=== PATIENT | male | born 1935 | race Caucasian/White ===

== ENCOUNTER → 2017-10-22 | Outpatient (CLI) | payer OTHER | LOC: BHLMT 11:00 | PROVIDERS: ATTEND Nurse Practitioner Family | DX: R55 Syncope and collapse (principal); R42 Dizziness and giddiness; I48.0 Paroxysmal atrial fibrillation; I42.8 Other cardiomyopathies; I10 Essential (primary) hypertension; E78.00 Pure hypercholesterolemia, unspecified; Z95.810 Presence of automatic (implantable) cardiac defibrillator | CPT/HCPCS: 93005-PO ==

== ENCOUNTER 2017-10-23 08:40 | Day surgery (SDC) | payer OTHER ==
[2017-10-23] MEDS ORDERED: ATROPINE SULFATE 1 MG/10 ML SYR IVP ONE (08:42)
[2017-10-23] MEDS ORDERED: NS 1,000 ML IV ONE (08:42)
--- NOTE | 2017-10-23 09:01 | CPEKG ---
Heart Rate: 125 RR Interval: 480 QRSD Interval: 152 QTC Interval: 0 QRS [place]: -67 EKG Severity - ABNORMAL ECG - EKG Impression: AFIB/FLUT AND V-PACED COMPLEXES Electronically Signed By: Diaz Marina 23-Oct-2017 11:24:03
[2017-10-23 09:22] LABS: INR 3.41 (0.83-1.16); PROTIME(PATIENT) 34.2 SEC (12.0-15.0)
[2017-10-23] MEDS ORDERED: PROPOFOL 200 MG/20 ML VIAL ONE (09:53)
--- NOTE | 2017-10-23 09:58 | PDANEPAE ---
ANE History of Present Illness CHRISSIE/CV afib ANE Past Medical History - Cardiovascular History Hx Hypertension: Yes Hx Arrhythmias: Yes Hx Chest Pain: No Hx Coronary Artery / Peripheral Vascular Disease: No Hx Palpitations: Yes - Pulmonary History Hx COPD: No Hx Asthma/Reactive Airway Disease: No Hx Recent Upper Respiratory Infection: No Hx Oxygen in Use at Home: No Hx Sleep Apnea: No ANE Review of Systems Review of Systems: - Exercise capacity METS (RN): 3 METS ANE Patient History - Allergies Allergies/Adverse Reactions: No Allergies [NKDA] Allergy (Verified 10/22/17 12:23) - Home Medications Home medications: home medication list seen and reviewed Home Medications: Carvedilol [Coreg (*)] 25 mg PO BIDMEAL 10/23/17 [Last Taken 10/23/17] Docusate Sodium [Colace 100 MG (*)] 10/23/17 [Last Taken 10/23/17] Furosemide [Lasix 40 MG (*)] 10/23/17 [Last Taken 10/22/17] Lisinopril 20 mg PO 10/23/17 [Last Taken 10/23/17] Jack-3/Dha/Epa/Fish Oil [Fish Oil 1,000 mg Softgel] 10/23/17 [Last Taken 10/23] Warfarin Sodium [Coumadin 2.5MG (*)] 2.5 mg PO DAILY16 10/23/17 [Last Taken 09/06] amLODIPine BESYLATE [Norvasc 2.5 mg (*)] 2.5 mg PO DAILY 10/23/17 [Last Taken ] - NPO status NPO Status: no food or drink >8 hours - Smoking Hx Smoking Status: Former smoker Marijuana use: No - Alcohol Use Alcohol Use: Rarely - Family Anes Hx Family Anes Hx: none ANE Labs/Vital Signs - Labs Result Diagrams: 10/23/17 09:05 - Vital Signs Height: 185.42 cm Weight: 92.986 kg ANE Physical Exam - Airway Neck exam: decreased ROM Mallampati Score: Class 2 Mouth exam: dentures - Pulmonary Pulmonary: no respiratory distress - Cardiovascular Cardiovascular: irregularly irregular, tachycardia ANE Anesthesia Plan Total IV Anesthesia: Yes
--- NOTE | 2017-10-23 10:01 | PDHPUP ---
History & Physical Update H&P update statement: This history and physical update is based on an assessment of the patient which was completed after admission or registration (within 24 hours), but prior to the surgery/procedure. 82 year old with symptomatic Afib. INR is therapeutic today. Medtronic BiV ICD in place. H&P update: H&P reviewed & patient examined, no change in patient's condition since H&P completed
--- NOTE | 2017-10-23 10:40 | CPEKG ---
Heart Rate: 80 RR Interval: 750 QRSD Interval: 134 QT Interval: 468 QTC Interval: 540 P [place]: 0 QRS [place]: -15 T Wave [place]: 206 EKG Severity - ABNORMAL ECG - EKG Impression: ATRIAL-SENSED VENTRICULAR-PACED COMPLEXES Electronically Signed By: Diaz Marina 23-Oct-2017 11:23:44
[2017-10-23] MEDS ORDERED: NALOXONE HCL 0.4 MG/ML INJ IVP PRN (10:41)
--- NOTE | 2017-10-23 10:41 | POSTANESTH ---
Post Anesthetic Evaluation Cardiovascular Status: Normal, Stable Respiratory Status: Normal, Stable Level of Consciousness/Mental Status: Can Participate in Eval Pain Control: Adequate, Prn Tx Ordered Nausea/Vomiting Control: Adequate, Prn Tx Ordered Complications Possibly Related to Anesthesia: None Noted
--- NOTE | 2017-10-23 10:58 | CPR ---
[f rep st] NONINVASIVE CARDIAC PROCEDURE REPORT DATE OF PROCEDURE: 10/23/2017 PROCEDURE PERFORMED: Transesophageal echocardiogram and direct current cardioversion. INDICATION FOR PROCEDURE: Atrial fibrillation, which is symptomatic. INDICATION: The patient is a pleasant 82-year-old gentleman with a known history of nonischemic card iomyopathy, status post dual chamber biventricular ICD implantation and a known history of paroxysmal atrial fibrillation, who presented to [facility] office with Claudy LLOYD and was found to be in symptomatic atrial fibrillation. He was subsequently arranged for CHRISSIE cardioversion today. 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 His most recent INRs have been therapeutic. However, given the significant amount of time in between his most recent INR checks, decision was made to pursue transesophageal ech ocardiogram prior to his cardioversion today. His INR at the time of procedure today was 3.4. DESCRIPTION OF PROCEDURE: After consents were signed for CHRISSIE cardioversion and anesthesia, a bite bl ock was placed. After appropriate sedation was achieved, CHRISSIE probe was passed without incident. Lef t atrial appendage was viewed in multiple projections. There was no evidence of left atrial appendag e or left atrial thrombus. Left ventricular function demonstrated LVEF of approximately 50%. No sig nificant valvular disease. CHRISSIE probe was removed without incident. The patient underwent a single biphasic synchronized shock of 200 joules with christianity of sinus rh ythm. Postoperatively, he did undergo a pace defibrillator interrogation demonstrating a normally functioni ng device. No changes were made to the settings of his ICD. PLAN: 1. The patient will be discharged home on current medications. 2. The patient will remain on his outpatient Coumadin regimen. 3. Followup with [facility] with Claudy LLOYD. /[id number]/MODL
--- NOTE | 2017-10-23 13:59 | ECHO ---
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 Conclusions: Normal size left ventricle. Normal global systolic LV function. The ejection fraction is visually estimated to be 50 %. Normal RV function. No thrombus is noted in the left atrium. No thrombus in left appendage. Measurements: Chambers Valvular Assessment AV/MV Valvular Assessment TV/PV Normal Normal Normal Name Value Range Name Value Range Name Value Range Visual EF: 50 % Additional Measurements: Findings: Left Ventricle: Normal size left ventricle. No LV hypertrophy. Normal global systolic LV function. The ejection fraction is visually estimated to be 50 %. No regional wall motion abnormality. Unable to assess diastolic dysfunction. Right Ventricle: Normal size right ventricle. Normal RV function. Patient: ALYSSIA CESPEDES Study Date: 10/23/2017 Page 1 of 2 08:06 AM Left Atrium: The left atrium is normal in size. Moderate atrial septal aneurysm. No thrombus is noted in the left atrium. Left Atrial Appendage: Good color flow doppler in the left atrial appendage. No thrombus in left appendage. Right Atrium: The right atrium is mildly dilated. Eustachian valve discernible in right atrium. Mitral Valve: The mitral valve is normal in appearance and function. Mild mitral valve regurgitation is present. No mitral stenosis is present. Aortic Valve: The aortic valve is normal in appearance and function. Aortic sclerosis is present. There is no significant aortic valve regurgitation. No aortic valve stenosis is present. Tricuspid Valve: The tricuspid valve is normal in appearance and function. Pulmonic Valve: The pulmonic valve is normal in appearance and function. Aorta: The aorta is normal. Pericardium: No pericardial effusion. No pleural effusion. l1n (No Signature Object) Patient: ALYSSIA CESPEDES Study Date: 10/23/2017 Page 2 of 2 08:06 AM [id number]
== END 2017-10-23 11:41 | disposition home or self-care (01) ==
LOC: FCATH 08:40
PROVIDERS: ATTEND Internal Medicine Cardiovascular Disease
PROC: 5A2204Z Restoration of Cardiac Rhythm, Single (ICD-10-PCS; principal; 2017-10-23)
DX: I48.91 Unspecified atrial fibrillation (principal); Z87.891 Personal history of nicotine dependence
CPT/HCPCS: J0461; J2704

== ENCOUNTER → 2017-11-02 | Outpatient (CLI) | payer OTHER | LOC: BHLMT 11:00 | PROVIDERS: ATTEND Internal Medicine Cardiovascular Disease | DX: I42.8 Other cardiomyopathies (principal); I48.0 Paroxysmal atrial fibrillation; R42 Dizziness and giddiness; Z95.810 Presence of automatic (implantable) cardiac defibrillator | CPT/HCPCS: 93005-PO ==

== ENCOUNTER → 2018-01-25 | Day surgery (SDC) | payer OTHER ==
[~2018-01-25] MED LIST: BACITRACIN IRRIGATION/NS 50,000 UNITS/1,000 ML BTL IRR ONE; DIAZEPAM 5 MG TAB PO ONE; NS 1,000 ML IV ONE; ceFAZolin 2 GM/DEXTROSE 100 ML IV ONE; diphenhydrAMINE 25 MG CAP PO ONE
--- NOTE | 2018-01-25 08:21 | CPEKG ---
Heart Rate: 71 RR Interval: 845 P-R Interval: 180 QRSD Interval: 130 QT Interval: 460 QTC Interval: 500 P [place]: 55 QRS [place]: 260 T Wave [place]: 60 EKG Severity - ABNORMAL ECG - EKG Impression: ATRIAL-SENSED VENTRICULAR-PACED RHYTHM EKG Impression: No significant change since October 23, 2017 Electronically Signed By: Duke Perry 25-Jan-2018 09:23:45
[2018-01-25 08:30] LABS: PLATELET COUNT 190 10^3/uL (150-400)
[2018-01-25 08:42] LABS: INR 1.6 (0.83-1.16); PROTIME(PATIENT) 19.2 SEC (12.0-15.0)
== END | disposition home or self-care (01) ==
LOC: FCATH 07:56
PROVIDERS: ATTEND Internal Medicine Cardiovascular Disease
DX: Z53.8 Procedure and treatment not carried out for other reasons (principal)
CPT/HCPCS: J0690

== ENCOUNTER 2018-02-17 09:31 | Day surgery (SDC) | payer OTHER ==
[2018-02-17] MEDS ORDERED: DIAZEPAM 5 MG TAB PO ONE (09:33)
[2018-02-17] MEDS ORDERED: NS 1,000 ML IV ONE (09:33)
[2018-02-17] MEDS ORDERED: diphenhydrAMINE 25 MG CAP PO ONE (09:33)
[2018-02-17] MEDS ORDERED: BACITRACIN IRRIGATION/NS 50,000 UNITS/1,000 ML BTL IRR ONE (09:33)
[2018-02-17] MEDS ORDERED: ceFAZolin 2 GM/DEXTROSE 100 ML IV ONE (09:33)
--- NOTE | 2018-02-17 09:46 | PDHPUP ---
History & Physical Update H&P update statement: This history and physical update is based on an assessment of the patient which was completed after admission or registration (within 24 hours), but prior to the surgery/procedure. H&P update: H&P reviewed & patient examined, no change in patient's condition since H&P completed
--- NOTE | 2018-02-17 09:47 | PDPROPOC ---
Sedation Plan of Care Sedation Plan of Care: vital signs stable, mental status noted, patient educated of risks, benefits, alternatives, patient can tolerate sedation ASA Classification: ASA 1 Planned drugs: fentanyl, midazolam Mallampati Score: Class 1 Mallampati Reference Image: Patient passed 3-3-2 rule?: Yes
--- NOTE | 2018-02-17 09:51 | PDGENHP ---
History & Physical Chief Complaint: ICD gen at [facility]. History of Present Illness: ICD gen at [facility]. Pertinent Past, Social, Family History: PAF, NIDCM. Relevant Physical Exam: Clean lungs, RRR,no edema Cardiorespiratory Assessment: Stable for ICD gen change.
[2018-02-17] MEDS ORDERED: LIDOCAINE 1% 300 MG/30 ML SDV ONE (10:04)
[2018-02-17] MEDS ORDERED: fentaNYL 100 MCG/2 ML INJ ONE (10:05)
[2018-02-17] MEDS ORDERED: BUPIVACAINE 0.5% 30 ML SDV ONE (10:05)
[2018-02-17] MEDS ORDERED: MIDAZOLAM 2 MG/2 ML VIAL ONE (10:05)
[2018-02-17] MEDS ORDERED: LIDO/EPI 1% **for epidural** 30 ML SDV ONE (10:05)
[2018-02-17 10:17] LABS: PLATELET COUNT 169 10^3/uL (150-400)
[2018-02-17 10:26] LABS: INR 2.49 (0.83-1.16); PROTIME(PATIENT) 26.9 SEC (12.0-15.0)
--- NOTE | 2018-02-17 12:30 | CPIP ---
[f rep st] INVASIVE CARDIAC PROCEDURE DATE OF PROCEDURE: 02/17/2018 INDICATIONS: The patient is a pleasant, 82-year-old male, with a history of nonischemic cardiomyopat hy with a previous biventricular ICD that was initially implanted in September of 2006. Subsequently, he had a generator change done in January of 2012. His current device is at elective replacement indica tors. PROCEDURE: Biventricular ICD generator change. TECHNIQUE: Following informed consent and in the fasting state, the [facility] The right chest was prepped and draped in the usual sterile fashion. Prior to the procedure antibiotics were administered. 2% lidocaine was infiltrated into the skin ov erlying the existing device. Using a #10 blade, a 4 cm incision was made. Using blunt and sharp dis section, the ICD capsule was identified which was opened sharply. The leads were dissected away from the surrounding scar tissue carefully. The device was then delivered from the pocket. The device w as disconnected from the leads. All leads were interrogated/tested independently. The pocket was th en inspected. All bleeders were cauterized. The pocket was infiltrated with D-Stat. The new device was brought to the field and all leads were identified by serial number and [facility] to the dba guidelines. The device and the redundant portion of the leads were then placed back in the pocket. The pocket was closed in 3 layers, initially using 2 layers of interrupte d suture with 2-0 and 3-0 Vicryl, and finally 4-0 Stratafix for the skin. Steri-Strips and a dry jamin ssing were applied. DEVICE INFORMATION: The leads were initially implanted October 05, 2006. The right atrial lead is a M edtronic model 4076, 45 cm in length, serial number [id number]. The right ventricular lead is Medtro tammy 6949, 58 cm lead, serial number [id number]. The coronary sinus lead is a Medtronic 4193, 78 cm l ead, serial number [id number]. The implanted pulse generator is a [employer] model number [id number], se rial number [id number]. In the atrium, capture was 0.5 milliseconds, 0.4 V with a lead impedance of 415 ohms. Sensed P waves 2.7 mV. In the right ventricle, capture was 0.5 milliseconds at 1.1 V with a lead impedance of 576 ohms, sensed R-waves of 12.5 mV. Coronary sinus lead capture was 0.9 V at 0 .5 milliseconds with sensed R-waves of 5.5 mV. COMPLICATIONS: None. DISPOSITION: The patient will be transferred to the [facility] where he will be recovered. I anticipate he will be discharged home later this afternoon. /[id number]/MODL
--- NOTE | 2018-02-17 13:21 | CPEKG ---
Test Reason : OPEN Blood Pressure : / mmHG Vent. Rate : 071 BPM Atrial Rate : 073 BPM P-R Int : 150 ms QRS Dur : 159 ms QT Int : 507 ms P-R-T Axes : 024 -77 044 degrees QTc Int : 552 ms Atrial-sensed ventricular-paced rhythm There is moderate baseline artifact (making visualization of the "p" waves difficult) Confirmed by Tobias Delgado ([id number]) on 02/17/2018 1:21:09 PM Referred By: Confirmed By:Tobias Delgado
== END 2018-02-17 15:00 | disposition home or self-care (01) ==
LOC: FCATH 09:31
PROVIDERS: ATTEND Internal Medicine Cardiovascular Disease
PROC: 0JH608Z Insertion of Defibrillator Generator into Chest Subcutaneous Tissue and Fascia, Open Approach (ICD-10-PCS; principal; 2018-02-17)
DX: Z45.02 Encounter for adjustment and management of automatic implantable cardiac defibrillator (principal); I42.9 Cardiomyopathy, unspecified; I10 Essential (primary) hypertension; I48.0 Paroxysmal atrial fibrillation
CPT/HCPCS: 33264; 93005; A4649; C1882; J0690; J2250; J3010